=== PATIENT | female | born 1985 | race Caucasian/White ===

== ENCOUNTER 2016-02-24 06:57 | Inpatient (IN) | payer BC ==
[2016-02-24] MEDS ORDERED: Buffered Lidocaine 1% SYR 3ML* 3 ML/SYR SYRINGE INTRADERM PRN (07:38)
[2016-02-24] MEDS ORDERED: OBEPIDURAL* 250 ML ONE (08:01)
[2016-02-24 08:05] LABS: ROM Internal QC QC Line Present
[2016-02-24 08:12] LABS: Hematocrit 38 % (35-47); Mean Corpuscular HGB Conc 35 g/dl (31-36); Mean Corpuscular Hemoglobin 32 pg (27-31); Mean Corpuscular Volume 92 fL (80-97); Mean Platelet Volume 8 um3 (7.4-10.4); Red Cell Distribution Width 14 % (10.5-15); White Blood Count 11.8 10^3/ul (3.5-10.8)
[2016-02-24] MEDS ORDERED: Phenylephrine IV* 40 MCG/ML 10 ML SYRINGE IV PUSH PRN (08:41)
[2016-02-24] MEDS ORDERED: Famotidine TAB* 20 MG PO PRN (08:41)
[2016-02-24] MEDS ORDERED: Sodium Citrate/Citric Acid* 15 ML UDC PO PRN (08:41)
[2016-02-24] MEDS ORDERED: OBEPIDURAL* 250 ML EPIDURAL SCH (09:00)
[2016-02-24] MEDS ORDERED: Mineral Oil Sterile, TOPICAL* 25 ML BTL ONE (12:22)
[2016-02-24] MEDS ORDERED: Oxytocin in LR* 20 UNITS/1,000 ML BAG IVPB ONE (12:43)
[2016-02-24] MEDS ORDERED: Witch Hazel PAD* JAR ONE (13:13)
[2016-02-24] MEDS ORDERED: Dibucaine 1% 28.35 GM TUBE ONE (13:13)
[2016-02-24] MEDS ORDERED: Lidocaine 1% MPF* 2 ML VIAL ONE (13:22)
[2016-02-24] MEDS ORDERED: Lidocaine 1% INJ* 10 MG/ML 30 ML SDV ONE (13:23)
[2016-02-24] MEDS ORDERED: oxyCODONE/Acetamin 5/325 MG* TAB PO PRN (14:04)
[2016-02-24] MEDS ORDERED: Witch Hazel PAD* JAR TOPICAL PRN (14:04)
[2016-02-24] MEDS ORDERED: Dibucaine 1% 28.35 GM TUBE PR PRN (14:04)
[2016-02-24] MEDS ORDERED: Oxytocin in LR* 20 UNITS/1,000 ML BAG IVPB SCH (15:00)
[2016-02-24] MEDS: Ibuprofen TAB* 600 MG PO PRN (15:35)
[2016-02-24] MEDS: Docusate CAP* 100 MG PO SCH (21:13)
[2016-02-24] MEDS: Acetaminophen TAB* 325 MG PO PRN (21:14)
[2016-02-25] MEDS: Acetaminophen TAB* 325 MG PO PRN ×3 (04:34→14:58)
[2016-02-25 08:26] LABS: Hematocrit 27 % (35-47); Hemoglobin 9.5 g/dl (12.0-16.0); Mean Corpuscular HGB Conc 35 g/dl (31-36); Mean Corpuscular Hemoglobin 32 pg (27-31); Mean Corpuscular Volume 93 fL (80-97); Mean Platelet Volume 8 um3 (7.4-10.4); Red Blood Count 2.93 10^6/ul (4.0-5.4); Red Cell Distribution Width 13 % (10.5-15); White Blood Count 10.9 10^3/ul (3.5-10.8)
[2016-02-25] MEDS: Docusate CAP* 100 MG PO SCH ×3 (08:34→20:11)
[2016-02-25] MEDS: Ferrous Gluconate TAB* 324 MG TAB PO SCH ×2 (08:34→20:12)
--- NOTE | 2016-02-25 17:07 | PTEDU ---
Patient Name: MIKE ARITA MIKE ARITA selected video: Follow Me Mum: [facility] to view on 2016 at 5:06:11 PM [id number]
[2016-02-25] MEDS: Ibuprofen TAB* 600 MG PO PRN (20:41)
[2016-02-26 07:49] VITALS: BP 110/62
[2016-02-26] MEDS: Ibuprofen TAB* 600 MG PO PRN (09:04)
[2016-02-26] MEDS: Docusate CAP* 100 MG PO SCH (09:04)
[2016-02-26] MEDS: Ferrous Gluconate TAB* 324 MG TAB PO SCH (09:04)
== END 2016-02-26 13:41 | disposition home or self-care (01) | DRG 560 ==
LOC: MCHOBOUT 06:57 → MCHOB 07:40
PROVIDERS: ADMIT Nurse Practitioner; ATTEND Nurse Practitioner
PROC: 4A1HX4Z Monitoring of Products of Conception, Cardiac Electrical Activity, External Approach (ICD-10-PCS; principal; 2016-02-24)
PROC: 0KQM0ZZ Repair Perineum Muscle, Open Approach (ICD-10-PCS; 2016-02-24)
PROC: 10E0XZZ Delivery of Products of Conception, External Approach (ICD-10-PCS; 2016-02-24)
DX: O90.81 Anemia of the puerperium (principal); Z37.0 Single live birth; O90.89 Other complications of the puerperium, not elsewhere classified; I95.9 Hypotension, unspecified; O70.1 Second degree perineal laceration during delivery; Z3A.39 39 weeks gestation of pregnancy
CPT/HCPCS: 36415; 84112; 85025; 86850; 86900; 86901; A9270-GY

== ENCOUNTER 2019-02-17 12:46 | Emergency (ER) | payer BC ==
[2019-02-17 13:15] VITALS: BP 107/68
--- NOTE | 2019-02-17 13:37 | UC ---
Throat Pain/Nasal Jori HPI - HPI Summary HPI Summary: 34 yo female presents with sore throat. She tells me that for the last 5 days she has had a sore throat that is improving. 4 days ago noticed a red rash to her abdomen that has dissipated. She took ibuprofen initially, but nothing for a few days. She is eating, drinking, and tolerating po. Denies fever, chills, sinus symptoms, cough, abdominal pain, n/v - History of Current Complaint Chief Complaint: UCRespiratory Stated Complaint: SORE THROAT Time Seen by Provider: 02/17/19 13:36 Hx Obtained From: Patient Onset/Duration: Sudden Onset Severity: Mild Pain Intensity: 2 Pain Scale Used: 0-10 Numeric - Allergies/Home Medications Allergies/Adverse Reactions: Allergies Allergy/AdvReac Type Severity Reaction Status Date / Time No Known Allergies Allergy Verified 02/17/19 13:15 Home Medications: Home Medications Cetirizine HCl [Zyrtec] 10 mg PO 02/17/19 [History] PMH/Surg Hx/FS Hx/Imm Hx - Additional Past Medical History Additional PMH: Allergies - Surgical History Surgical History: None - Family History Known Family History: Positive: None - Social History Lives: With Family Alcohol Use: Daily Substance Use Type: None Smoking Status (MU): Never Smoked Tobacco Have You Smoked in the Last Year: No - Immunization History Most Recent Influenza Vaccination: 12/03/15 Most Recent Tetanus Shot: 03/04/15 Most Recent Pneumonia Vaccination: none Review of Systems All Other Systems Reviewed And Are Negative: No Constitutional: Positive: Negative Skin: Positive: Rash Eyes: Positive: Negative ENT: Positive: Sore Throat Respiratory: Positive: Negative Cardiovascular: Positive: Negative Gastrointestinal: Positive: Negative Neurological: Positive: Negative Psychological: Positive: Negative Physical Exam - Summary Physical Exam Summary: GENERAL: NAD. WDWN. No pain distress. SKIN: No rashes, sores, lesions, or open wounds. HEENT: Head: AT/NC Eyes: EOM intact. Conjunctiva clear without inflammation or discharge. Ears: Hearing grossly normal. TMs intact, no bulging, erythema, or edema. Nose: Nasal mucosa pink and moist. NTTP maxillary and frontal sinus. Throat: Posterior oropharynx without exudates, erythema, or tonsillar enlargement. Uvula midline. NECK: Supple. Nontender. No lymphadenopathy. CHEST: CTAB. No accessory muscle use. Breathing comfortably and in no distress. CV: RRR. Pulses intact. Cap refill <2seconds NEURO: Alert. PSYCH: Age appropriate behavior. Triage Information Reviewed: Yes Vital Signs: Initial Vital Signs Temp 98.6 F 02/17/19 13:11 Pulse 79 02/17/19 13:11 Resp 18 02/17/19 13:11 BP 107/68 02/17/19 13:11 Pulse Ox 98 02/17/19 13:11 Laboratory Tests 02/17/19 14:09 Group A Strep Rapid Negative Vital Signs Reviewed: Yes Throat Pain/Nasal Course/Dx - Course Course Of Treatment: POC strep negative. Exam WNL. Suspect viral sore throat - Differential Dx/Diagnosis Provider Diagnosis: Sore throat Discharge ED - Sign-Out/Discharge Documenting (check all that apply): Patient Departure All imaging exams completed and their final reports reviewed: No Studies - Discharge Plan Condition: Stable Disposition: HOME Patient Education Materials: Pharyngitis (ED) Referrals: No Primary Care Phys,NOPCP [Primary Care Provider] - Additional Instructions: Your symptoms are likely from a viral infection. Viral infections do not respond to antibiotics and are limited to the treatment of symptoms. Viral infections typically run their course in 7-10 days. Drink plenty of fluids, especially if you are running any fever. Use salt water gargles several times a day. Take over the counter acetaminophen (Tylenol) or ibuprofen (Advil, Motrin) according to directions as needed for pain or fever. You may also use Chloraseptic spray or Cepacol lonzenges according to directions which contain a numbing medication and can provide some temporary relief from a sore throat. Return here or follow up with your primary care provider in 7 days if symptoms persist. - Billing Disposition and Condition Condition: STABLE Disposition: Home
== END 2019-02-17 14:39 | disposition home or self-care (01) ==
LOC: UCEAST 12:46
DX: J02.9 Acute pharyngitis, unspecified (principal); R21 Rash and other nonspecific skin eruption
CPT/HCPCS: 87651; 99211; G0463

== ENCOUNTER 2020-05-04 10:16 | Inpatient (IN) ==
[2020-05-04] MEDS ORDERED: Buffered Lidocaine 1% SYRIN 1 ml INTRADERM ONE (11:04)
[2020-05-04] MEDS ORDERED: Lactated Ringers 1000 ml BAG 1,000 ML IV ONE ×2 (11:04→12:10)
[2020-05-04 11:24] LABS: ABS Basophils 0.1 10^3/ul (0-0.2); ABS Eosinophils 0.1 10^3/ul (0-0.6); ABS Monocytes 0.8 10^3/ul (0-0.8); ABS Neutrophils 7.9 10^3/ul (1.5-7.7); Eosinophil % 0.6 %; Hematocrit 37 % (35-47); Hemoglobin 12.8 g/dL (12.0-16.0); Lymphocyte % 18.1 %; Mean Corpuscular HGB Conc 34 g/dL (31-36); Mean Corpuscular Hemoglobin 32 pg (27-31); Mean Corpuscular Volume 92 fL (80-97); Mean Platelet Volume 7.8 fL (7.4-10.4); Platelet Count 273 10^3/uL (150-450); Red Blood Count 4.04 10^6 /uL (3.70-4.87); Red Cell Distribution Width 14 % (10-15); White Blood Count 10.9 10^3/uL (3.5-10.8)
[2020-05-04] MEDS ORDERED: OBEPIDURAL 0 ML EPIDURAL ONE (11:40)
[2020-05-04] MEDS ORDERED: Bupivacaine 0.25% SDV PF 10 ML VIAL INJ ONE (11:45)
[2020-05-04 11:48] LABS: Urine Benzodiazepine Screen None Detected (None Detect); Urine Cannabinoids Screen None Detected (None Detect); Urine Opiates Screen None Detected (None Detect)
[2020-05-04] MEDS ORDERED: Lactated Ringers 1000 ml BAG 1,000 ML IV SCH ×3 (12:00→14:00)
[2020-05-04] MEDS ORDERED: EPHEDrine (Pressors) 50 MG/ML VIAL IV PUSH PRN ×2 (12:10)
[2020-05-04] MEDS ORDERED: Phenylephrine 40 mcg/mL 10mL (400mcg) SYRINGE IV PUSH PRN ×2 (12:10)
[2020-05-04] MEDS ORDERED: Sodium Citrate/Citric Acid LIQ 15 ML UDC PO PRN (12:10)
[2020-05-04] MEDS ORDERED: Oxytocin in LR 20 UNITS/1,000 ML BAG IVPB ONE (12:31)
[2020-05-04] MEDS ORDERED: OBEPIDURAL 250 ML EPIDURAL SCH (13:00)
[2020-05-04] MEDS ORDERED: Glycerin ADULT 2.4 gm SUPP PR PRN (13:18)
[2020-05-04] MEDS ORDERED: Dibucaine 1% OINT 28.35 GM TUBE PR PRN (13:18)
[2020-05-04] MEDS ORDERED: Witch Hazel PAD JAR TOPICAL PRN (13:18)
[2020-05-04] MEDS ORDERED: Oxytocin in LR 20 UNITS/1,000 ML BAG IVPB SCH (14:00)
[2020-05-04] MEDS ORDERED: Lidocaine 1% VIAL 10 MG/ML VIAL ONE (15:51)
[2020-05-05 07:02] LABS: ABS Eosinophils 0.1 10^3/ul (0-0.6); ABS Lymphocytes 1.8 10^3/ul (1.0-4.8); ABS Monocytes 0.7 10^3/ul (0-0.8); ABS Neutrophils 6.4 10^3/ul (1.5-7.7); Eosinophil % 0.7 %; Hematocrit 31 % (35-47); Hemoglobin 10.6 g/dL (12.0-16.0); Lymphocyte % 19.7 %; Mean Corpuscular HGB Conc 35 g/dL (31-36); Mean Corpuscular Hemoglobin 32 pg (27-31); Mean Corpuscular Volume 93 fL (80-97); Mean Platelet Volume 7.8 fL (7.4-10.4); Platelet Count 204 10^3/uL (150-450); Red Blood Count 3.29 10^6 /uL (3.70-4.87); Red Cell Distribution Width 14 % (10-15); White Blood Count 8.9 10^3/uL (3.5-10.8)
[2020-05-05 07:52] VITALS: BP 114/76
== END 2020-05-05 15:00 | disposition home or self-care (01) | DRG 560 ==
LOC: MCHOBOUT 10:16 → MCHOB 11:14
PROVIDERS: ADMIT Midwife; ATTEND Midwife